=== PATIENT | female | born 1960 | race Caucasian/White ===

== ENCOUNTER 2020-01-21 15:58 | Emergency (ER) | payer OTHER ==
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
--- NOTE | 2020-01-21 17:41 | CT ---
CT lumbar spine Technique: Multiple axial sections were obtained through the lumbar spine. Reconstructed coronal and sagittal images were obtained. Comparison: No prior lumbar spine imaging is available. Findings: Vacuum phenomena is noted within both sacroiliac joints. Transitional segment is seen at the lumbosacral junction with large transverse processes showing pseudoarticulation to the sacrum. No acute fracture is seen. Slight anterior wedging is noted of L4 which appears to be old. Posterior disc space narrowing at L3-4 with circumferential disc bulge. Circumferential disc bulge also noted at L4-5 with small disc herniation suspected to the midline and to the left of midline. L5-S1 disc shows slight diffuse posterior disc bulge. Disc at the lumbosacral junction is labeled as L5-S1 believed to represent transitional segment. Impression: 1. Transitional segment with disc labeled as S1-2 at the lumbosacral junction. 2. Mild anterior wedging of L4 which appears old. 3. Degenerative disc change as noted above. 4. Nothing acute is appreciated. Note: If more accurate evaluation of disc degenerative change is needed, MRI could then be considered. Diagnostic code #3 This report was dictated in MDT
--- NOTE | 2020-01-21 17:42 | CT ---
CT cervical spine Technique: Multiple axial sections were obtained from above C1 inferiorly through the inferior T3 vertebral body. Reconstructed coronal and sagittal images were obtained. Comparison: No prior cervical spine imaging. Findings: Severe disc space narrowing is noted at C5-6 with vacuum phenomena. Severe disc space narrowing is noted at T2-3. Slight scattered anterior endplate osteophytes are seen. Mild posterior osteophytes are noted at C5-6. Mild scattered degenerative apophyseal change is seen. No bony central or bony neural foraminal stenosis is seen. No fracture or subluxation is seen. Impression: 1. Mild degenerative change as described above. 2. No acute fracture or acute subluxation is seen. Diagnostic code #2 This report was dictated in MDT
== END 2020-01-21 18:45 | disposition home or self-care (01) ==
LOC: MW.ED 15:58
DX: M54.5 Low back pain (principal); Z88.6 Allergy status to analgesic agent; Z88.1 Allergy status to other antibiotic agents; Z88.5 Allergy status to narcotic agent; Z88.8 Allergy status to other drugs, medicaments and biological substances; V89.2XXA Person injured in unspecified motor-vehicle accident, traffic, initial encounter
CPT/HCPCS: 72125; 72125-26; 72131; 72131-26; 99283; 99283-25